=== PATIENT | female | born 1995 | race Caucasian/White ===

== ENCOUNTER 2016-05-16 12:08 | Inpatient (IN) | payer BC, MEDICAID ==
[2016-05-13 22:10] VITALS: BMI 31.1
[2016-05-16] MEDS ORDERED: OXYTOCIN 1,000 ML IV SCH (16:10)
[2016-05-16] MEDS ORDERED: BUTORPHANOL 1 MG/ML VIAL IV PRN (16:10)
[2016-05-16] MEDS ORDERED: ACETAMINOPHEN 325 MG/TAB TABLET PO PRN (16:10)
[2016-05-16] MEDS ORDERED: Aluminum;Magnesium;Simethicone 30 ML UDC PO PRN (16:10)
[2016-05-16] MEDS ORDERED: LR 500 ML IV PRN (16:10)
[2016-05-16] MEDS ORDERED: SODIUM CHLORIDE 0.9% 3 ML FLUSH FLUSH PRN (16:10)
[2016-05-16] MEDS ORDERED: DINOPROSTONE 10 MG VAGINAL INSERT PV ONE (16:10)
[2016-05-16] MEDS ORDERED: SODIUM CHLORIDE 0.9% 3 ML FLUSH FLUSH SCH (16:10)
[2016-05-16 16:55] LABS: AUTOMATED BASOPHIL 0.4 % (0-2); AUTOMATED EOSINOPHIL 1.1 % (0-5); AUTOMATED LYMPH 11.8 % (17-44); AUTOMATED MONOCYTE 4.7 % (3-10); MPV 10.4 fL (7.4-10.4)
[2016-05-16] MEDS: LR 1,000 ML IV SCH (16:58)
--- NOTE | 2016-05-16 17:27 | HISTPHYS ---
- HISTORY OF PRESENT ILLNESS Age: 20 Estimated Due Date: 06/05/16 Gestational Age: 37 : 1 Para: 0 Patient Presents to:: Labor & Delivery Presents for:: Induction of Labor (IUGR) Current : GBS -, Other Complications (IUGR) - REVIEW OF SYSTEMS Reports/Denies: Reports: Movement (Normal ). Denies: Complaints, Vaginal Bleeding, Contractions, Leaking Fluid Pain: Reports: None - ALLERGIES Allergies Allergy/AdvReac Type Severity Reaction Status Date / Time No Known Allergies Allergy Verified 05/16/16 16:54 - CURRENT MEDICATIONS Home Medication List Cephalexin 500 mg PO 05/16/16 [History] - PAST MEDICAL HISTORY Reports: No Significant History - PAST SURGICAL HISTORY Reports: None - FAMILY HISTORY Family History: Noncontributory - SOCIAL HISTORY Smoking Status: Never smoker Social History: Denies: Alcohol Use Marital Status: Single (Never ) - GENITOURINARY HISTORY HX : 1 Para: 0 - PHYSICAL EXAM Vital Signs:: Temperature: () HR: () RR: () BP: () Pulse Ox: () GENERAL: Alert, Oriented, No Acute Distress ABDOMEN: Gravid, Non-Distended, Non-Tender, Soft GENITOURINARY: Normal. negative: Lesions, Mass, Rash, Swelling, Discharge MUSCULOSKELETAL: Normal. negative: Atrophy EXTERMITIES: Moves All Extremeties. negative: Pain/Tenderness Dilation (cm): 1 Effacement (%): 0 Station: -5 Heart Rate: 130 Reactive, Moderate Variability. negative: Decelerations Membranes: Intact - ASSESSMENT (ACTIVE PROBLEMS) (1) 37 weeks gestation of Acute Z3A.37 - 37 WEEKS GESTATION OF (2) IUGR (intrauterine growth restriction) affecting care of mother Acute O36.5990 - MATERN CARE FOR OTH OR SUSP POOR FETL GRTH, UNSP TRI, UNSP - PLAN Admit, Induction of Labor (Pt counseled on the indications for induction. We have discussed the risks of prematurity vs the risks of expectant management. Also told of the risk of hyperstimulation with distress and emergent section)
[2016-05-16] MEDS: SODIUM CHLORIDE 0.9% 3 ML FLUSH FLUSH SCH (17:55)
[2016-05-16] MEDS ORDERED: Vaccine Screening Complete SCH (20:00)
[2016-05-17] MEDS: LR 1,000 ML IV SCH ×3 (00:04→14:07)
[2016-05-17] MEDS: SODIUM CHLORIDE 0.9% 3 ML FLUSH FLUSH SCH ×2 (05:21→19:30)
[2016-05-17] MEDS ORDERED: LIDOCAINE 1% 30 ML VIAL (PRESERVATIVE FREE) ONE (05:53)
--- NOTE | 2016-05-17 07:44 | OBGYNPROG ---
- Exam Monitor Mode: External(US) Heart Rate: 135 Reactive Contraction Pattern: Regular Vaginal Bleeding: None Dilation (cm): 2 Effacement (%): 60 Station: -3 Membranes: AROM Amniotic Fluid: Clear - Plan Continue Present Management
[2016-05-17] MEDS ORDERED: LIDOCAINE 2% 10 ML (PRESERVATIVE FREE) VIAL INF ONE (10:00)
[2016-05-17] MEDS ORDERED: Fentanyl/Bupivacaine 100 ML EPI ONE (12:35)
[2016-05-17] MEDS ORDERED: ONDANSETRON HCL 4 MG/2 ML VIAL IV PRN (12:58)
[2016-05-17] MEDS ORDERED: EPHEDrine 50 MG/ML VIAL IV PRN (12:58)
[2016-05-17] MEDS ORDERED: NALOXONE 0.4 MG/ML AMPULE IV PRN (12:58)
[2016-05-17] MEDS ORDERED: LR 500 ML IV ONE (12:58)
[2016-05-17] MEDS ORDERED: METOCLOPRAMIDE 10 MG/2 ML VIAL IV PRN (12:58)
[2016-05-17] MEDS ORDERED: DIPHENHYDRAMINE 50 MG/ML VIAL IV PRN (12:58)
[2016-05-17] MEDS ORDERED: LR 500 ML IV PRN (12:58)
[2016-05-17] MEDS ORDERED: Fentanyl/Bupivacaine 100 ML EPI SCH (13:00)
--- NOTE | 2016-05-17 13:00 | HIM.ANES ---
Anesthesia Evaluation & Plan - Focused Review of Systems Cardiac History: No: Hx Cardiac Disorders HEENT: No: Other HEENT Problems Gastrointestinal: No: Hx Gastrointestinal Disorders Neurological/Musculoskeletal: No: Hx Neurological Disorders Psychological: No Hx Mental/Emotional Disorders Smoking Status: Never smoker Past Social History: Denies: Alcohol Use - Focused Physical Exam Mallampati: Class II Thyromental Distance: Greater than 3 Neck: Full Range of Motion Dental: Normal - no significant findings Cardiovascular/Chest: Normal Respiratory: Lungs clear Any problems with anesthesia, including nausea and vomiting?: No Any relatives with a history of Malignant Hyperthermia?: No Other: Problem List Problem Status Onset 37 weeks gestation of Acute 36 weeks gestation of Acute IUGR (intrauterine growth restriction) affecting care of mother Acute NST (non-stress test) reactive Acute CBC/BMP/Other 05/16/16 16:40 Allergies Allergy/AdvReac Type Severity Reaction Status Date / Time No Known Allergies Allergy Verified 05/16/16 16:54 Home Medications Medication Instructions Recorded Last Taken Type Vits W-Ca,Fe,FA(<1Mg) 1 each PO DAILY #60 tablet 10/14/15 05/15/16 23: 00 Rx [] 1 TAB Cephalexin 500 mg PO 05/16/16 05/15/16 23:00 History 500 Height and Weight Patient's height 5 ft 11 in Patient's weight 94.347 kg BMI 31.1 Vital Signs Temperature 98.1 F 05/17/16 09:53 Pulse Rate 65 05/17/16 06:01 Respiratory Rate 18 05/17/16 06:01 Blood Pressure 131/68 05/17/16 06:01 Pulse Oxygen Saturation - Anesthetic Plan Anesthesia Type: Epidural ASA Class: 2 -: I have examined this patient and reviewed the medical record. The patient has been assessed prior to anesthesia. Risks and benefits of anesthesia and anesthetic technique options have been discussed and all questions answered. The patient accepts the risk and desires me to proceed with the planned anesthetic.
--- NOTE | 2016-05-17 13:01 | HIM.ANESP ---
Procedure Note DATE OF PROCEDURE: 05/17/16 PREOPERATIVE DIAGNOSIS: Labor Pain Control. POSTOPERATIVE DIAGNOSIS: Same PROCEDURE: Epidural PERFORMING PROVIDER: Ashwin Lee MD DIAGNOSIS: Labor SURGEON: [Marii] TIME OUT: [1244] Anesthesia START time: 1245[] Anesthesia STOP (Delivery) Time : MEDICATIONS: INF Bupivacaine 0.125% + Fentanyl 3mcg/ml ml/hr NEEDLE: Tuohy 17G STERILE BARRIERS: sterile x 3, mask, sterile gloves. APPROACH: [Midline] ATTEMPTS:[1] COMPLICATIONS: None. BLOOD LOSS: 0 cubic centimeters. PROCEDURE FINDINGS AND TECHNIQUE: At the request of the patient and programs manager , an Epidural Block was performed for labor pain relief. Epidural Risk, benefits and alternatives of the procedure were explained and questions answered. Informed consent was obtained, confirmed with patient and on chart. Time out was performed. Contraction, Pulse oximetry, EKG and BP monitoring were established. The patient is a [sitting] position and lumbar area was prepped and draped in a sterile manner. Skin anesthesia was obtained with 1% Xylocaine infiltration. The [Epidural] was done in the usual manner. A Tuohy needle was inserted with loss of resistance to [NS] @ [7]cm. Local anesthetic was injected in incremental volumes with negative aspirations throughout, Bolus dose: Lidocaine [2] % [10] cc. There was no pain on injection. Epidural catheter threaded [5] cm into epidural space. Test dose Lidocaine 1.5 % with epinephrine 1:200,000, 3 ml via epidural catheter. Negative test dose. SaO2 [98]% EKG SR Loading Dose 0 mcg/ml Fentanyl Infusing Dose Bupivacaine 0.125% + Fentanyl 3mcg/ml ml/hr See Watch Child Record (chart) Patient tolerated the procedure well without complications.
[2016-05-17] MEDS ORDERED: OXYCODONE HCL 5 MG TABLET PO PRN ×2 (15:39)
[2016-05-17] MEDS ORDERED: SODIUM CHLORIDE 0.9% 3 ML FLUSH FLUSH PRN (15:39)
[2016-05-17] MEDS ORDERED: BISACODYL 10 MG SUPP PR PRN (15:39)
[2016-05-17] MEDS ORDERED: ACETAMINOPHEN 325 MG/TAB TABLET PO PRN (15:39)
[2016-05-17] MEDS ORDERED: HYDROCORTISONE 25 MG SUPP PR PRN (15:39)
[2016-05-17] MEDS ORDERED: DIBUCAINE OINTMENT 1 OZ TUBE TOP PRN (15:39)
[2016-05-17] MEDS ORDERED: ZOLPIDEM TARTRATE 5 MG TAB PO PRN (15:39)
[2016-05-17] MEDS ORDERED: OXYTOCIN 1,000 ML IV ONE (15:39)
[2016-05-17] MEDS ORDERED: LANOLIN OINTMENT 0.25 OZ TUBE TOP PRN (15:39)
--- NOTE | 2016-05-17 15:55 | OBDELNOTE ---
Delivery Note - Problem/Diagnosis (1) Vaginal delivery Status: Acute (2) Single live Status: Acute (3) 37 weeks gestation of Status: Acute (4) IUGR (intrauterine growth restriction) affecting care of mother Status: Acute - Admitting Diagnosis Reason for Visit: Induction of Labor Admission Date: 05/16/16 Admission time: 16:45 Gestational Age: 37 Labor Anesthesia/Analgesia: IV Medication, Epidural Date: 05/17/16 Time: 15:23 Spontaneous Vaginal Delivery Presentation: Vertex Episiotomy: None Laceration: Vaginal Repair Agent: 3-0 Vicryl EBL: 200 Fluid: Clear Placenta: Spontaneous Description: Normal, Complete Cord: 3 Vessels, Other (body cord x1) - Procedures Procedures: None - Data Order: Melton Sex: Male Weight: 2.41 kg (1min): 8 (5min): 9 Feeding Plans for Infant: Breast Plans Circumcision: Yes Complications: No Complications to:: LDRP/Mother's Room - /Operative Complications /Op Complications: None Discharge Planning - REASON FOR ADMISSION Patient Presents to:: Labor & Delivery Reason for Visit: Induction of Labor (IUGR) - DISCHARGE INSTRUCTIONS Discharge Disposition: Home Condition: Good Prescriptions: Hydrocodone Bit/Acetaminophen [[place] 5-325 Tablet] 1 - 2 tab PO Q4H PRN #30 tab PRN Reason: Pain Ibuprofen Tablet [Motrin] 800 mg PO Q6 PRN #45 tab PRN Reason: Pain Referrals: Kalie Colvin DO [Staff Physician] - Six Weeks Diet at Discharge: Regular Activity: Pelvic Rest Call Physician for: Foul Smelling Discharge, Pain/Redness in Calf/Leg, Soaking Pad in 1 hr, Temperature Above 100.4 Incision, Lacerations, or Tears: Yes
--- NOTE | 2016-05-17 15:56 | PCM.DCS92 ---
- Primary/Secondary Discharge Diagnoses (1) Vaginal delivery Acute O80 - ENCOUNTER FOR FULL-TERM UNCOMPLICATED DELIVERY (2) Single live Acute Z37.0 - SINGLE LIVE (3) 37 weeks gestation of Acute Z3A.37 - 37 WEEKS GESTATION OF (4) IUGR (intrauterine growth restriction) affecting care of mother Acute O36.5990 - MATERN CARE FOR OTH OR SUSP POOR FETL GRTH, UNSP TRI, UNSP F T - HOSPITAL COURSE /Op Complications: None - DISCHARGE INSTRUCTIONS Discharge Disposition: Home Discharge Condition: Good Cognitive Discharge Status: Unimpaired Fuctional Discharge Status: Independent Patient Leaving with Prescriptions?: Yes Home Medications/ New Prescriptions: New Hydrocodone Bit/Acetaminophen [[place] 5-325 Tablet] 1 - 2 tab PO Q4H PRN #30 tab PRN Reason: Pain Ibuprofen Tablet [Motrin] 800 mg PO Q6 PRN #45 tab PRN Reason: Pain No Action Vits W-Ca,Fe,FA(<1Mg) [] 1 each PO DAILY #60 tablet Cephalexin 500 mg PO Referrals: Kalie Colvin DO [Staff Physician] - Six Weeks - Diet Diet at Discharge: Regular - Activity Activity: Pelvic Rest - Instructions Call Physician for: Foul Smelling Discharge, Pain/Redness in Calf/Leg, Soaking Pad in 1 hr, Temperature Above 100.4 - Incision Incision, Lacerations, or Tears: Yes - DC Summary Notes Discharge Medications: *See "Discharge Medication List" for a complete list of Home Medications and Discharge Medications.* Obstetric Hospital Course - Admitting Diagnosis Reason for Visit: Induction of Labor Admission Date: 05/16/16 Admission time: 16:45 Gestational Age: 37 Labor Anesthesia/Analgesia: IV Medication, Epidural Date: 05/17/16 Time: 15:23 Spontaneous Vaginal Delivery Presentation: Vertex Episiotomy: None Laceration: Vaginal Repair Agent: 3-0 Vicryl EBL: 200 Fluid: Clear Placenta: Spontaneous Description: Normal, Complete Cord: 3 Vessels, Other (body cord x1) - Procedures Procedures: None - Infant Data Order: Melton Sex: Male Weight: 2.41 kg (1min): 8 (5min): 9 Feeding Plans for : Breast Plans Circumcision: Yes Complications: No Complications to:: LDRP/Mother's Room - /Operative Complications /Op Complications: None
[2016-05-17] MEDS ORDERED: Pharmacy Order Set Alert SCH (16:00)
[2016-05-17] MEDS: IBUPROFEN 800 MG TAB PO SCH ×2 (17:40→23:37)
[2016-05-17] MEDS ORDERED: LR 1,000 ML IV SCH (22:38)
[2016-05-18] MEDS: IBUPROFEN 800 MG TAB PO SCH ×4 (05:34→23:54)
[2016-05-18 05:35] VITALS: TEMP 98.1
--- NOTE | 2016-05-18 07:40 | OBGYNPROG ---
- Subjective Post Day: 1 Reports: Ambulating, Out of Bed, Tolerating Regular Diet, Voiding Freely, Moderate Lochia. Denies: Complaints, Headache, Nausea, Vomitting, Chest Pain, Shortness of Breath Pain: Reports: Well Managed - Objective Vital Signs: H&H Results 05/18/16 05/16/16 05:30 16:40 Hgb 10.4 L D 12.7 Hct 30.5 L 36.5 Last Vital Signs Temp 98.1 F 05/18/16 05:35 Pulse 71 05/18/16 05:35 Resp 18 05/18/16 05:35 BP 114/61 05/18/16 05:35 Pulse Ox General: Alert, Oriented, No Acute Distress Cardiovascular/Chest: Normal Respiratory: Normal - CTA ABDOMEN: Non-Tender, Soft Fundus: Firm. Denies: Tender EXTERMITIES: Moves All Extremeties JAMAR'S SIGN: Denies: Bilateral OBGYN Progress Note - ASSESSMENT (1) care following vaginal delivery Status: Acute Code(s): Z39.2 - ENCOUNTER FOR ROUTINE FOLLOW-UP - PLAN Routine Care, Ambulate, Discharge (instructions given), Supportive Care
[2016-05-19] MEDS: IBUPROFEN 800 MG TAB PO SCH (06:06)
[2016-05-19] MEDS: SODIUM CHLORIDE 0.9% 3 ML FLUSH FLUSH SCH (06:07)
[2016-05-19 06:08] VITALS: BP 113/65; PULSE 76
--- NOTE | 2016-05-19 12:21 | OBGYNPROG ---
- Subjective Post Day: 2 Reports: Ambulating, Tolerating Regular Diet, Voiding Freely, Moderate Lochia. Denies: Complaints, Headache, Nausea, Vomitting, Palpitations, Chest Pain, Shortness of Breath Pain: Reports: Well Managed - Objective Vital Signs: H&H Results 05/18/16 05/16/16 05:30 16:40 Hgb 10.4 L D 12.7 Hct 30.5 L 36.5 Last Vital Signs Temp 98.1 F 05/19/16 06:08 Pulse 76 05/19/16 06:08 Resp 18 05/19/16 06:08 BP 113/65 05/19/16 06:08 Pulse Ox General: Alert, Oriented, No Acute Distress Cardiovascular/Chest: Normal Respiratory: Normal - CTA ABDOMEN: Non-Tender, Soft Fundus: Firm. Denies: Tender EXTERMITIES: Moves All Extremeties. Denies: Edema JAMAR'S SIGN: Denies: Bilateral OBGYN Progress Note - ASSESSMENT (1) care following vaginal delivery Status: Acute Code(s): Z39.2 - ENCOUNTER FOR ROUTINE FOLLOW-UP - PLAN Routine Care, Discharge (instructions given), Supportive Care
== END 2016-05-19 12:40 | disposition home or self-care (01) | DRG 775 ==
LOC: MASU 16:09
PROVIDERS: ADMIT Obstetrics & Gynecology; ATTEND Obstetrics & Gynecology
PROC: 10E0XZZ Delivery of Products of Conception, External Approach (ICD-10-PCS; principal; 2016-05-17)
PROC: 0UQGXZZ Repair Vagina, External Approach (ICD-10-PCS; 2016-05-17)
PROC: 10907ZC Drainage of Amniotic Fluid, Therapeutic from Products of Conception, Via Natural or Artificial Opening (ICD-10-PCS; 2016-05-17)
PROC: 3E0S3CZ (ICD-10-PCS; 2016-05-17)
DX: O36.5930 Maternal care for other known or suspected poor fetal growth, third trimester, not applicable or unspecified (principal); Z37.0 Single live birth; Z3A.37 37 weeks gestation of pregnancy
CPT/HCPCS: 59400; 62318; 81002; 85014; 85018; 85025; 86592; 86850; 86900; 86901; 96360; 96361; 96365; 96366; 96375; J0595; J2001; J2405; J2590; J3490